=== PATIENT | male | born 1975 | race Caucasian/White ===

== ENCOUNTER → 2024-12-16 11:33 | Outpatient (CLI) | payer OTHER, SELFPAY ==
--- NOTE | 2024-12-16 11:35 | DI.US.S_ITS ---
PROCEDURE: US SCROTUM INDICATIONS: HYDROCELE TECHNIQUE: Real-time scanning was performed of the scrotum and testicles, with image documentation. Color and pulse Doppler interrogation was performed of both testicles. COMPARISON: None. FINDINGS: Right: Testicle is normal in size at 4.0 x 3.5 x 2.5 cm, and homogenous in echotexture. Epididymis is normal in overall size and morphology. [id number] hydrocele with septations. Multiple simple cysts in the epididymal head, the largest of which measures 0.4 cm in maximum diameter. Overlying scrotal skin is normal in thickness. Left: Testicle is normal in size at 4.5 x 3.0 x 2.4 cm, and homogeneous in echotexture. Epididymis is normal in overall size and morphology. Small hydrocele. No varicoceles. Multiple small epididymal head cysts, the largest of which measures 3 mm. Overlying scrotal skin is normal in thickness. Doppler: Color and pulse Doppler demonstrate normal and symmetric arterial flow in both testicles. IMPRESSION: 1. No testicular torsion, testicular mass, epididymitis, or orchitis. 2. Bilateral hydroceles and small epididymal cysts. Dictated by: Linus Walsh M.D. on 12/16/2024 at 15:07 Approved by: Linus Walsh M.D. on 12/16/2024 at 15:11
== END ==
LOC: US 11:35
DX: N43.3 Hydrocele, unspecified (principal); N50.3 Cyst of epididymis
CPT/HCPCS: 76870